=== PATIENT | female | born 1965 | race Hispanic/Latino ===

== ENCOUNTER 2021-06-09 11:16 | Emergency (ER) | payer OTHER ==
[2021-06-09] MEDS ORDERED: traMADol HCl 50 MG TAB ONE (11:31)
== END 2021-06-09 12:13 | disposition home or self-care (01) ==
LOC: BURERS 11:16
DX: S82.64XA Nondisplaced fracture of lateral malleolus of right fibula, initial encounter for closed fracture (principal); W01.10XA Fall on same level from slipping, tripping and stumbling with subsequent striking against unspecified object, initial encounter; E78.5 Hyperlipidemia, unspecified; E78.00 Pure hypercholesterolemia, unspecified; J44.9 Chronic obstructive pulmonary disease, unspecified; M19.90 Unspecified osteoarthritis, unspecified site; F17.210 Nicotine dependence, cigarettes, uncomplicated; Z79.899 Other long term (current) drug therapy